=== PATIENT | female | born 1960 | race Caucasian/White ===

== ENCOUNTER 2018-09-29 11:37 | Emergency (ER) | payer OTHER ==
[2018-09-29 11:54] VITALS: BP 131/85; PULSE 73; TEMP 98.3; BMI 32.9
--- NOTE | 2018-09-29 12:03 | PDOC ---
History of Present Illness <Isaura Magdaleno - Last Filed: 09/29/18 12:47> - History of Present Illness Initial Comments: 09/29/18 12:37 Ms. Bullard is a 58 yo female w/ pmh of prior thyroid carcinoma (s/p thyroidectomy, on synthroid), frequent knee surgeries who presents for evaluation s/p fall earlier today. Denies hitting her head or LOC. Currently complaining of L shoulder and L groin pain. The patient denies chest pain, shortness of breath, headache and dizziness. Denies fever, chills, nausea, vomit, diarrhea and constipation. Denies dysuria, frequency, urgency and hematuria. <Pablo Sotomayor - Last Filed: 09/29/18 13:47> - General Chief Complaint: Pain, Acute Stated Complaint: FALL Time Seen by Provider: 09/29/18 12:03 Past History <Isaura Magdaleno - Last Filed: 09/29/18 12:47> - Past Medical History Cancer: Yes (thyroid) COPD: No Psychiatric Problems: Yes (ANXIETY) - Surgical History Orthopedic Surgery: Yes (arthroscopy) - Suicide/Smoking/Psychosocial Hx Smoking History: Never smoked Have you smoked in the past 12 months: No Hx Alcohol Use: No Drug/Substance Use Hx: No Substance Use Type: None <Pablo Sotomayor - Last Filed: 09/29/18 13:47> - Past Medical History Allergies/Adverse Reactions: Allergies Allergy/AdvReac Type Severity Reaction Status Date / Time No Known Drug Allergies Allergy Verified 09/29/18 11:40 Home Medications: Ambulatory Orders Levothyroxine [Synthroid -] 137 mcg PO ASDIR 01/07/15 Buspirone HCl [Buspar -] 0 mg PO DAILY 09/29/18 Review of Systems - Review of Systems Comments:: 09/29/18 13:45 GENERAL/CONSTITUTIONAL: No fever or chills. No weakness. HEAD, EYES, EARS, NOSE AND THROAT: No change in vision. No ear pain or discharge. No sore throat. CARDIOVASCULAR: No chest pain or shortness of breath RESPIRATORY: No cough, wheezing, or hemoptysis. GASTROINTESTINAL: No nausea, vomiting, diarrhea or constipation. GENITOURINARY: No dysuria, frequency, or change in urination. MUSCULOSKELETAL: +Left shoulder soreness w/ additional L groin pain. SKIN: No rash NEUROLOGIC: No headache, vertigo, loss of consciousness, or change in strength/ sensation. ENDOCRINE: No increased thirst. No abnormal weight change HEMATOLOGIC/LYMPHATIC: No anemia, easy bleeding, or history of blood clots. ALLERGIC/IMMUNOLOGIC: No hives or skin allergy. <Pablo Sotomayor - Last Filed: 09/29/18 13:47> *Physical Exam - Vital Signs Last Vital Signs Temp Pulse Resp BP Pulse Ox 98.3 F 73 17 131/85 99 09/29/18 11:39 09/29/18 11:39 09/29/18 11:39 09/29/18 11:39 09/29/18 11:39 <Isaura Magdaleno - Last Filed: 09/29/18 12:47> - Vital Signs Last Vital Signs Temp Pulse Resp BP Pulse Ox 98.3 F 73 17 131/85 99 09/29/18 11:39 09/29/18 11:39 09/29/18 11:39 09/29/18 11:39 09/29/18 11:39 - Physical Exam Comments: 09/29/18 13:45 GENERAL: Awake, alert, and fully oriented, in no acute distress HEAD: No signs of trauma, normocephalic, atraumatic EYES: PERRLA, EOMI, sclera anicteric, conjunctiva clear ENT: Auricles normal inspection, hearing grossly normal, nares patent, oropharynx clear without exudates. Moist mucosa NECK: Normal ROM, supple, no lymphadenopathy, JVD, or masses LUNGS: No distress, speaks full sentences, clear to auscultation bilaterally HEART: Regular rate and rhythm, normal S1 and S2, no murmurs, rubs or gallops, peripheral pulses normal and equal bilaterally. ABDOMEN: Soft, nontender, normoactive bowel sounds. No guarding, no rebound. No masses EXTREMITIES: Normal inspection, Normal range of motion, no edema. No clubbing or cyanosis. NEUROLOGICAL: Cranial nerves II through XII grossly intact. Normal speech, normal gait, no focal sensorimotor deficits SKIN: Warm, Dry, normal turgor, no rashes or lesions noted. <Pablo Sotomayor - Last Filed: 09/29/18 13:47> Moderate Sedation - Procedure Monitoring Vital Signs: Procedure Monitoring Vital Signs Temperature 98.3 F 09/29/18 11:39 Pulse Rate 73 09/29/18 11:39 Respiratory Rate 17 09/29/18 11:39 Blood Pressure 131/85 09/29/18 11:39 O2 Sat by Pulse Oximetry (%) 99 09/29/18 11:39 <Isaura Magdaleno - Last Filed: 09/29/18 12:47> - Procedure Monitoring Vital Signs: Procedure Monitoring Vital Signs Temperature 98.3 F 09/29/18 11:39 Pulse Rate 73 09/29/18 11:39 Respiratory Rate 17 09/29/18 11:39 Blood Pressure 131/85 09/29/18 11:39 O2 Sat by Pulse Oximetry (%) 99 09/29/18 11:39 <Pablo Sotomayor - Last Filed: 09/29/18 13:47> Medical Decision Making - Medical Decision Making 09/29/18 12:47 shoulder and hip xrays are negative. Patient feels improved. Will discharge home. <Isaura Magdaleno - Last Filed: 09/29/18 12:47> - Medical Decision Making 09/29/18 13:46 Ms. Bullard is a 58 yo female w/ pmh as described who presents for evaluation of non-specific shoulder and Left groin pain following fall earlier today. Patient well appearing and evaluated with Xray which were negative. No concern for acute process at this time. Patient has orthopedist she will follow-up outpatient with. <Pablo Sotomayor - Last Filed: 09/29/18 13:47> *DC/Admit/Observation/Transfer - Discharge Dispostion Decision to Admit order: No <Isaura Magdaleno - Last Filed: 09/29/18 12:47> <Pablo Sotomayor - Last Filed: 09/29/18 13:47> Diagnosis at time of Disposition: Contusion, hip Qualifiers: Encounter type: initial encounter Laterality: right Qualified Code(s): S70.01XA - Contusion of right hip, initial encounter - Discharge Dispostion Disposition: HOME Condition at time of disposition: Good - Patient Instructions Printed Discharge Instructions: DI for Knee Pain, DI for Hip Pain Additional Instructions: You came to the ED for a fall. We did xrays of the hip and shoulder which show no fractures. You may be sore for up to three days, but you should return to the ED or see your orthopedist for continued symptoms. You can take motrin or tylenol for the pain. Return immediately to the ED for severe pain or other new or worsening symptoms. - Post Discharge Activity Forms/Work/School Notes: Back to Work
--- NOTE | 2018-09-29 12:07 | PDOC ---
Attending Attestation - Resident Resident Name: Pablo Sotomayor - HPI HPI: 09/29/18 17:32 Pt presents to the ED complaining of pain in her R hip and knee after slip and fall. Ambulatory at the scene and in the ED. Denies hitting her head or LOC. - Physicial Exam PE: 09/29/18 18:20 Agree with resident exam. PAtient has full ROM at shoulder or hip. Ambulatory in the ED with normal gait. - Medical Decision Making 09/29/18 18:20 Pt presents to the ED complaining of shoulder and knee pain after fall. No other injuries. Xrays taken to rule out fractures and are negative. Will discharge home.
[2018-09-29] MEDS ORDERED: ACETAMINOPHEN 325 MG TABLET (FP) PO ONE (12:16)
[2018-09-29] MEDS ORDERED: ACETAMINOPHEN 325 MG TABLET (FP) ONE (12:50)
== END 2018-09-29 13:05 | disposition home or self-care (01) ==
LOC: FER 11:37
DX: S70.01XA Contusion of right hip, initial encounter (principal); M25.561 Pain in right knee; W19.XXXA Unspecified fall, initial encounter; Y93.9 Activity, unspecified; Y92.9 Unspecified place or not applicable; Z85.850 Personal history of malignant neoplasm of thyroid; E89.0 Postprocedural hypothyroidism
CPT/HCPCS: 72170-TC-FY; 73030-TC-LT-FY; 99281-25